=== PATIENT | male | born 1970 | race Caucasian/White ===

== ENCOUNTER 2018-06-06 05:43 | Day surgery (SDC) | payer MEDICAID, OTHER ==
--- NOTE | 2018-05-27 09:24 | HP ---
HISTORY AND PHYSICAL: DATE OF ADMISSION/SURGERY: 06/06/18 DATE OF OFFICE VISIT: 05/27/18 SURGEON: Zofia Russo MD.* (DICTATED BY ROBB MUNOZ) PROCEDURE: Right knee arthroscopy with partial meniscectomy, possible chondroplasty, possible synovectomy, and possible plica excision. CHIEF COMPLAINT: Right knee pain. HISTORY OF PRESENT ILLNESS: Mr. Monae is a 48-year-old gentleman with continued complaints of right knee pain. He failed conservative treatment and elected to proceed with a right knee arthroscopy. PAST MEDICAL HISTORY: GERD. PAST SURGICAL HISTORY: None. CURRENT MEDICATIONS: Prilosec daily. ALLERGIES: No known drug allergies. FAMILY HISTORY: Cancer. SOCIAL HISTORY: He is a 48-year-old gentleman. Lives with his mother. He does not smoke or use drugs. Uses occasional alcohol. REVIEW OF SYSTEMS: A complete 14-point review of systems was reviewed with the patient, positive for GERD. He denies a history of DVT, PE, hepatitis, HIV, or anesthesia problems. PHYSICAL EXAMINATION GENERAL: He is well developed, well nourished, in no acute distress. VITAL SIGNS: He stands 5 feet 6 inches tall, weighs 169 pounds. His blood pressure is 130/82, his heart rate is 80. HEENT: Normocephalic, atraumatic. NECK: Supple. No palpable lymph nodes. PULMONARY: The lungs are clear to auscultation bilaterally. CARDIO: Regular rate and rhythm. Strong S1, S2. ABDOMEN: Soft, nontender. NEUROLOGICAL: He is alert and oriented x3. MUSCULOSKELETAL: Right lower extremity: The skin is intact. There are no open wounds or abrasions. There is a moderate effusion of the right knee. He has some tenderness over the medial joint line, positive Apley's, positive Keyla's. Range of motion is 5 to 130 degrees of flexion. He is distally neurovascularly intact. ASSESSMENT AND PLAN: Mr. Monae is a 48-year-old gentleman with continued complaints of right knee pain. An MRI confirms a medial meniscus tear. He has elected to proceed with right knee arthroscopy with partial meniscectomy, possible chondroplasty, possible synovectomy, and possible plica excision. The surgery is scheduled for 06/06/[address] Russo discussed the risks and benefits of the surgery at today's visit and all of his questions were answered. He will follow up with Dr. Russo 2 weeks after the surgery. ROBB MUNOZ [id number]/[facility] #: [id number] MTDJarod
[~2018-06-06 05:43] MED LIST: Buffered Lidocaine 1% SYRIN* 1 ML/SYRINGE INTRADERM ONE; Ondansetron TAB* 4 MG PO ONE
[2018-06-06] MEDS ORDERED: oxyCODONE/Acetamin 5/325 MG* TAB PO PRN (05:54)
[2018-06-06] MEDS ORDERED: Scopolamine 1.5 mg* PATCH TRANSDERM PRN (05:54)
[2018-06-06] MEDS ORDERED: PROCHLORPERAZINE INJ 5 MG/ML 2 ML VIAL IV PRN (05:54)
[2018-06-06] MEDS ORDERED: Naloxone* 0.4 MG/ML 1 ML VIAL IV PRN (05:54)
[2018-06-06] MEDS ORDERED: fentaNYL* 50 MCG/ML 2 ML VIAL (100 MCG VIAL) IV PRN (05:54)
[2018-06-06] MEDS ORDERED: DiMENhydriNATE IV* 50 MG/ML VIAL IV PUSH PRN (05:54)
[2018-06-06] MEDS ORDERED: Morphine 4 MG/ML VIAL (1 ml) 4 MG/ML VIAL IV PRN (05:54)
[2018-06-06] MEDS ORDERED: Lactated Ringers 1000 ML Bag* 1,000 ML IV SCH (06:00)
[2018-06-06] MEDS ORDERED: Ondansetron ODT TAB* 4 MG ONE (06:00)
[2018-06-06] MEDS ORDERED: Dexamethasone TAB* 4 MG PO ONE (06:00)
[2018-06-06] MEDS ORDERED: Famotidine IV* 10 MG/ML 2 ML (20 mg) IV ONE (06:00)
[2018-06-06] MEDS ORDERED: Dexamethasone TAB* 4 MG ONE (06:01)
[2018-06-06] MEDS ORDERED: ceFAZolin 2 GM in NS PREMIX(*) 2 GM/100 ML BAG IVPB ONE (06:01)
[2018-06-06] MEDS ORDERED: methylPREDNISolone ACETATE 80* 80 MG/ML 1 ML VIAL ONE (07:11)
[2018-06-06] MEDS ORDERED: Ketorolac INJ* 30 MG/ML 1 ML VIAL ONE (07:11)
[2018-06-06] MEDS ORDERED: Propofol* 10 MG/ML 20 ML BTL ONE (07:11)
[2018-06-06] MEDS ORDERED: Bupivacaine 0.5%* 50 ML VIAL ONE (07:11)
[2018-06-06] MEDS ORDERED: Lidocaine 2% PF * 5 ML VIAL ONE (07:11)
[2018-06-06] MEDS ORDERED: EPINEPHRINE 1 MG/ML 1 ML VIAL ONE (07:11)
[2018-06-06] MEDS ORDERED: fentaNYL* 50 MCG/ML 2 ML VIAL (100 MCG VIAL) ONE (07:17)
[2018-06-06] MEDS ORDERED: Midazolam* 1 MG/ML 5 ML VIAL (5 MG) ONE (07:17)
[2018-06-06 10:33] VITALS: BP 132/82
--- NOTE | 2018-06-06 21:00 | OP ---
DATE OF OPERATION: 06/06/18 - [facility] DATE OF : 68 SURGEON: Zofia Russo MD SUPERVISOR CUTTING DEPARTMENT: ROBB Naidu. Mr. Bernard did help throughout the procedure with preparation of the leg, wound retraction, manipulation of the knee, and wound closure. ANESTHESIOLOGIST: Dr. Velez. ANESTHESIA: General. PRE-OP DIAGNOSIS: Right knee medial meniscal tear. POST-OP DIAGNOSES: Right knee medial meniscal tear and lateral meniscal tear. OPERATIVE PROCEDURE: Right knee arthroscopy with partial medial meniscectomy and partial lateral meniscectomy. ESTIMATED BLOOD LOSS: Less than 25 cc. COMPLICATIONS: None. SPECIMENS: None. BRIEF HISTORY/INDICATIONS: Mr. Monae is a 48-year-old gentleman who had a fall on some ice twisting the right knee approximately 2 months ago. He has had mechanical symptoms, catching along the medial joint line since then with swelling and pain. He failed conservative treatment and MRI confirmed a medial meniscal tear. The patient elected to undergo right knee arthroscopy due to continued pain and failure of conservative treatment. Informed consent was obtained from the patient. He understood the risks of surgery included, but were not limited to bleeding, infection, damage to nearby structures, continued pain, need for further surgery, retear of the meniscus, progression of arthritis , stroke, heart attack, blood clot, , and anesthesia complications. He wished to proceed. INTRAOPERATIVE FINDINGS: Intraoperatively, the patient was noted to have a large parrot beak-type tear with anterior displacement involving the majority of the body of the medial meniscus in the white-red zone and red-red zone. He was noted to have a radial type tear of the lateral meniscus along the posterior horn. He was noted to have grade 2 and 3 Outerbridge cartilage changes in both patellofemoral and medial compartment affecting the femoral trochlear groove and medial femoral condyle the most. DESCRIPTION OF PROCEDURE: Mr. Monae was identified in the preanesthesia unit. His right lower extremity was marked as the correct operative side. Informed consent was signed and placed in the chart. The patient was taken to the operating room and placed under anesthesia without complication. Right lower extremity was prepped and draped in the usual sterile fashion. Preop time-out was made to correctly identify the patient, side, and site. Appropriate perioperative antibiotics were given within 1 hour of incision. A standard anterolateral portal incision of 0.5 cm in length was made with a 10 - blade and carried down through the capsule. The trocar was introduced. As soon as the light and water sources were turned on, there was immediate visualization of the suprapatellar pouch. A tour of the knee joint was performed. The suprapatellar pouch had no obvious abnormalities. Patellofemoral compartment had some grade 2 and 3 Outerbridge cartilage changes along the femoral trochlear groove. Minimal amount of exposed subchondral bone, but significant amount of cartilage wear. Medial gutter had no loose body or plica. Medial compartment immediately showed a large displaced meniscal tear into the joint space. Medial femoral condyle had some grade 2 and 3 Outerbridge cartilage changes. ACL and PCL appeared to be intact. The knee was placed in a [id number] position. There was a radial tear along the posterior horn of the lateral meniscus. Lateral compartment showed minimal degenerative changes. Lateral gutter showed no loose body or plica. Under direct visualization, a medial portal incision was made with a 10-blade. A probe was introduced and a second tour of the knee joint was performed. No additional findings were noted. Straight biter and shaver were used to perform partial medial meniscectomy. There was a large parrot beak-type tear involving the majority of the body of the medial meniscus in the white-red and red-red zone. This tear was completely excised. Further probing of the medial meniscus revealed no additional tears. Radiofrequency ablation wand was used to further smooth the edge of the meniscus. The knee was placed in a [id number] position. Straight biter and shaver were used to perform partial lateral meniscectomy. This was done in the white- red zone. Radiofrequency ablation wand was used to further smooth the edge of the meniscus. Further probing of the lateral meniscus showed no additional tears. The knee was copiously irrigated with sterile saline. All instruments were removed. Incisions were closed with 3-0 nylon suture. Intraarticular injection of 80 mg Depo-Medrol and 6 cc of 0.5% ropivacaine was placed in the knee joint. Incisions were dressed with sterile Xeroform, 4x4s, and Webril. The Iggy wrap and cold pack were placed over this. The patient's anesthesia was reversed without difficulty. He was taken to the PACU in stable condition. Intended weightbearing will be weightbearing as tolerated. Intended DVT prophylaxis will be aspirin. [id number]/[facility] #: [id number] F F THOMPSON HOSPITALJarod
[2018-06-09] MEDS ORDERED: Scopolamine PATCH Remove* 1 NOTE MISC PATCH OFF ONE (05:56)
== END 2018-06-06 13:43 | disposition home or self-care (01) ==
LOC: OR 05:43
PROVIDERS: ATTEND Orthopaedic Surgery Adult Reconstructive Orthopaedic Surgery
DX: S83.241A Other tear of medial meniscus, current injury, right knee, initial encounter (principal); S83.281A Other tear of lateral meniscus, current injury, right knee, initial encounter; W00.0XXA Fall on same level due to ice and snow, initial encounter; Y92.89 Other specified places as the place of occurrence of the external cause; Z87.891 Personal history of nicotine dependence; K21.9 Gastro-esophageal reflux disease without esophagitis
CPT/HCPCS: A9270-GY; J0690; J1040; J1885; J2250; J2704; J3010; J8540

== ENCOUNTER 2018-09-08 10:46 | Emergency (ER) | payer OTHER ==
[2018-09-08 11:48] VITALS: BP 0/0
--- NOTE | 2018-09-08 11:48 | ED ---
Skin Complaint - HPI Summary HPI Summary: Patient is a 48-year-old male who presents to the ED with a small erythematous area to the abdomen as well as a larger erythematous slightly raised area to the right axillary area. Patient states he pulled a tick off the abdomen yesterday which was not on for more than an hour or so per patient. However, his chief complaint today is the axillary area which is erythematous, slightly raised, painful and larger than it was yesterday. He first noticed this area yesterday, he has never had an abscess before. Patient denies any fevers, sweats, chills. - History of Current Complaint Chief Complaint: EDRashSkinAbscess Time Seen by Provider: 09/08/18 10:47 Stated Complaint: TICK BITE AND RASH PER PT Hx Obtained From: Patient Onset/Duration: Started Hours Ago Skin Exposure Onset/Duration: Hours Ago Timing: Constant Onset Severity: Moderate Current Severity: Moderate Pain Intensity: 4 Pain Scale Used: 0-10 Numeric Skin Location: Diffuse Character: Swelling, Pain, Redness, Raised, Painful Aggravating Symptom(s): Nothing Alleviating Symptom(s): Nothing Associated Signs & Symptoms: Negative Related History: Possible Reaction to: Insect - Allergy/Home Medications Allergies/Adverse Reactions: Allergies Allergy/AdvReac Type Severity Reaction Status Date / Time No Known Allergies Allergy Verified 09/08/18 10:52 PMH/Surg Hx/FS Hx/Imm Hx Previously Healthy: Yes Endocrine/Hematology History: Denies: Hx Diabetes, Hx Thyroid Disease Cardiovascular History: Denies: Hx Congestive Heart Failure, Hx Deep Vein Thrombosis, Hx Hypertension - denies, Hx Myocardial Infarction, Hx Pacemaker/ICD, Other Cardiovascular Problems/Disorders Respiratory History: Denies: Hx Asthma, Hx Chronic Obstructive Pulmonary Disease (COPD), Hx Lung Cancer, Hx Pneumonia, Hx Pulmonary Embolism, Other Respiratory Problems/ Disorders GI History: Reports: Hx Gastroesophageal Reflux Disease - on meds Denies: Hx Gall Bladder Disease, Hx Gastrointestinal Bleed, Hx Ulcer, Hx Urosepsis, Other GI Disorders History: Denies: Hx Kidney Stones, Hx Renal Disease Sensory History: Reports: Hx Contacts or Glasses - glasses Denies: Hx Hearing Aid Opthamlomology History: Reports: Hx Contacts or Glasses - glasses Neurological History: Denies: Hx Dementia, Hx Migraine, Hx Seizures, Hx Transient Ischemic Attacks (TIA), Other Neuro Impairments/Disorders Psychiatric History: Denies: Hx Anxiety, Hx Depression, Hx Panic Disorder, Hx Schizophrenia, Hx Bipolar Disorder - Surgical History Surgery Procedure, Year, and Place: DENIES Hx Anesthesia Reactions: No - Immunization History Hx Pertussis Vaccination: No Immunizations Up to Date: Yes Infectious Disease History: No Infectious Disease History: Denies: Hx Clostridium Difficile, Hx Hepatitis, Hx Human Immunodeficiency Virus (HIV), Hx of Known/Suspected MRSA, Hx Shingles, Hx Tuberculosis, Hx Known/ Suspected VRE, Hx Known/Suspected VRSA, History Other Infectious Disease, Traveled Outside the [place] in Last 30 Days - Family History Known Family History: Positive: None - Social History Occupation: Employed Full-time Lives: With Family Alcohol Use: Rare Hx Substance Use: No Substance Use Type: Reports: Marijuana Substance Use Comment - Amount & Last Used: rare Hx Tobacco Use: Yes Smoking Status (MU): Former Smoker Amount Used/How Often: 20 yrs pack a day Review of Systems Constitutional: Negative Negative: Fever, Chills, Fatigue, Skin Diaphoresis Negative: Palpitations, Chest Pain Negative: Shortness Of Breath, Cough Genitourinary: Negative Positive: no symptoms reported, see HPI Negative: Arthralgia, Myalgia Positive: Other - erythematous slightly raised area measuring 2cm in diameter with no fluctance just inferior to the R axillary area All Other Systems Reviewed And Are Negative: Yes Physical Exam Triage Information Reviewed: Yes Vital Signs On Initial Exam: Initial Vitals Temp Pulse Resp BP Pulse Ox 99.1 F 80 16 152/90 98 09/08/18 10:47 09/08/18 10:47 09/08/18 10:47 09/08/18 10:47 09/08/18 10:47 Vital Signs Reviewed: Yes Appearance: Positive: Well-Nourished Skin: Positive: Skin Color Reflects Adequate Perfusion, Other - erythematous slightly raised area measuring 2cm in diameter with no fluctance just inferior to the R axillary area Head/Face: Positive: Normal Head/Face Inspection Eyes: Positive: EOMI, Conjunctiva Clear Neck: Positive: Supple, No Lymphadenopathy Respiratory/Lung Sounds: Positive: Clear to Auscultation, Breath Sounds Present Cardiovascular: Positive: Pulses are Symmetrical in both Upper and Lower Extremities Neurological: Positive: Sensory/Motor Intact Psychiatric: Positive: Affect/Mood Appropriate Diagnostics - Vital Signs Vital Signs Temp Pulse Resp BP Pulse Ox 09/08/18 10:47 99.1 F 80 16 152/90 98 - Laboratory Lab Statement: Any lab studies that have been ordered have been reviewed, and results considered in the medical decision making process. Course/Dx - Course Course Of Treatment: During the course of treatment, the patient is evaluated for erythematous slightly raised nonfluctuant area inferior to the right axillary area. This appears to be an ingrown hair causing the area to become swollen. There does not appear to be any fluctuance for an I and D. discussed with patient treatment options. Patient prefers antibiotic treatment only at this time and will return if the area becomes larger and will need I&D at that time. Also as small area to the abdomen was a confirmed tick bite. Less than 24 hours - no EM rash. no prophylactic tx at this time. Strict return precautions for both areas are given. Patient understands to return if the area under the axillary area becomes any worse or if the erythematous area grows larger into an EM rash. - Differential Diagnoses - Skin Complaint Differential Diagnoses: Other - folliculitis, sebaceous cyst, EM rash, lyme, herpetic lesion - Diagnoses Provider Diagnoses: Abscess Discharge - Sign-Out/Discharge Documenting (check all that apply): Patient Departure Patient Received Moderate/Deep Sedation with Procedure: No - Discharge Plan Condition: Stable Disposition: HOME Prescriptions: Sulfamethox/Trimethoprim DS* [Bactrim DS 800/160 TAB*] 1 tab PO BID #10 tab MDD 2 Patient Education Materials: Abscess (ED) Referrals: No Primary Care Phys,NOPCP [Primary Care Provider] - Additional Instructions: Bactrim twice daily x 5 days Warm compresses to the area If the area becomes larger or the area becomes fluctuant- return to the ED immediately - Billing Disposition and Condition Condition: STABLE Disposition: Home
== END 2018-09-08 11:47 | disposition home or self-care (01) ==
LOC: ED 10:46
DX: L02.411 Cutaneous abscess of right axilla (principal); Z87.891 Personal history of nicotine dependence
CPT/HCPCS: 99281

== ENCOUNTER 2018-09-12 09:00 | Emergency (ER) | payer BC, OTHER ==
[2018-09-12 09:22] VITALS: BP 150/96
--- NOTE | 2018-09-12 09:45 | ED ---
Skin Complaint - HPI Summary HPI Summary: Mr. Monae has had a red rash in his right axilla and on his right abdomen for the last week or so. He was seen in the emergency department on the seventh, diagnosed with an abscess and started on Bactrim. He has not gotten any better. - History of Current Complaint Chief Complaint: UCSkin Time Seen by Provider: 09/12/18 09:14 Stated Complaint: TICK BITE SYMP Hx Obtained From: Patient Onset/Duration: Started Days Ago Skin Exposure Onset/Duration: Days Ago Timing: Constant Onset Severity: Mild Current Severity: Mild Pain Intensity: 3 Skin Location: Abdomen, Other: - Right axilla Aggravating Symptom(s): Nothing Alleviating Symptom(s): Nothing Associated Signs & Symptoms: Negative - Allergy/Home Medications Allergies/Adverse Reactions: Allergies Allergy/AdvReac Type Severity Reaction Status Date / Time No Known Allergies Allergy Verified 09/12/18 09:22 PMH/Surg Hx/FS Hx/Imm Hx Previously Healthy: Yes Endocrine/Hematology History: Denies: Hx Diabetes, Hx Thyroid Disease Cardiovascular History: Denies: Hx Congestive Heart Failure, Hx Deep Vein Thrombosis, Hx Hypertension - denies, Hx Myocardial Infarction, Hx Pacemaker/ICD, Other Cardiovascular Problems/Disorders Respiratory History: Denies: Hx Asthma, Hx Chronic Obstructive Pulmonary Disease (COPD), Hx Lung Cancer, Hx Pneumonia, Hx Pulmonary Embolism, Other Respiratory Problems/ Disorders GI History: Reports: Hx Gastroesophageal Reflux Disease - on meds Denies: Hx Gall Bladder Disease, Hx Gastrointestinal Bleed, Hx Ulcer, Hx Urosepsis, Other GI Disorders History: Denies: Hx Kidney Stones, Hx Renal Disease Sensory History: Reports: Hx Contacts or Glasses - glasses Denies: Hx Hearing Aid Opthamlomology History: Reports: Hx Contacts or Glasses - glasses Neurological History: Denies: Hx Dementia, Hx Migraine, Hx Seizures, Hx Transient Ischemic Attacks (TIA), Other Neuro Impairments/Disorders Psychiatric History: Denies: Hx Anxiety, Hx Depression, Hx Panic Disorder, Hx Schizophrenia, Hx Bipolar Disorder - Surgical History Surgery Procedure, Year, and Place: DENIES Hx Anesthesia Reactions: No Infectious Disease History: No Infectious Disease History: Denies: Hx Clostridium Difficile, Hx Hepatitis, Hx Human Immunodeficiency Virus (HIV), Hx of Known/Suspected MRSA, Hx Shingles, Hx Tuberculosis, Hx Known/ Suspected VRE, Hx Known/Suspected VRSA, History Other Infectious Disease, Traveled Outside the [place] in Last 30 Days - Family History Known Family History: Positive: None - Social History Alcohol Use: Rare Hx Substance Use: No Substance Use Type: Reports: Marijuana Substance Use Comment - Amount & Last Used: rare Hx Tobacco Use: Yes Smoking Status (MU): Former Smoker Amount Used/How Often: 20 yrs pack a day Review of Systems Constitutional: Negative Respiratory: Negative Positive: Rash Neurological: Negative All Other Systems Reviewed And Are Negative: Yes Physical Exam - Summary Physical Exam Summary: He was nontoxic in appearance with stable vital signs. Triage Information Reviewed: Yes Vital Signs On Initial Exam: Initial Vitals Temp Pulse Resp BP Pulse Ox 98.6 F 90 21 150/96 97 09/12/18 09:17 09/12/18 09:17 09/12/18 09:17 09/12/18 09:09/12/18 09:17 Vital Signs Reviewed: Yes Skin: Positive: Target Lesions - He has target lesions in both areas. Diagnostics - Vital Signs Vital Signs Temp Pulse Resp BP Pulse Ox 09/12/18 09:17 98.6 F 90 21 150/96 97 - Laboratory Lab Statement: Any lab studies that have been ordered have been reviewed, and results considered in the medical decision making process. Course/Dx - Course Course Of Treatment: This looks like erythema migrans to me and I will switch him to doxycycline. - Diagnoses Provider Diagnoses: Lyme disease Discharge - Sign-Out/Discharge Documenting (check all that apply): Patient Departure All imaging exams completed and their final reports reviewed: No Studies - Discharge Plan Condition: Stable Disposition: HOME Patient Education Materials: Lyme Disease (ED) Referrals: No Primary Care Phys,NOPCP [Primary Care Provider] - Additional Instructions: Your blood pressure was running slightly high here today and I recommended he follow up with your PCP. - Billing Disposition and Condition Condition: STABLE Disposition: Home
== END 2018-09-12 09:50 | disposition home or self-care (01) ==
LOC: UCEAST 09:00
DX: A69.20 Lyme disease, unspecified (principal); K21.9 Gastro-esophageal reflux disease without esophagitis; Z87.891 Personal history of nicotine dependence
CPT/HCPCS: 99212; G0463

== ENCOUNTER 2019-01-14 11:05 | Emergency (ER) | payer BC, OTHER ==
[2019-01-14 12:03] VITALS: BP 157/89
--- NOTE | 2019-01-14 12:12 | UC ---
Hand/Wrist HPI - HPI Summary HPI Summary: 48 yo male presents with RIGHT wrist injury. He tells me that yesterday he was carrying in groceries and his niece jumped on his back - pt fell forward with his hands outstretched. His right right wrist bent backwards. Since that time has had pain and swelling. He is right handed. Has been taking ibuprofen with little relief. Denies numbness or tingling. - History Of Current Complaint Chief Complaint: UCUpperExtremity Stated Complaint: WRIST INJURY Time Seen by Provider: 01/14/19 12:11 Hx Obtained From: Patient Onset/Duration: Sudden Onset Severity Initially: Moderate Severity Currently: Moderate Pain Intensity: 8 Pain Scale Used: 0-10 Numeric - Allergies/Home Medications Allergies/Adverse Reactions: Allergies Allergy/AdvReac Type Severity Reaction Status Date / Time No Known Allergies Allergy Verified 01/14/19 11:56 PMH/Surg Hx/FS Hx/Imm Hx GI/ History: Gastroesophageal Reflux Other History Of: Negative For: HIV, Hepatitis B, Hepatitis C - Surgical History Surgical History: Yes Surgery Procedure, Year, and Place: R knee 2018 - Family History Known Family History: Positive: None - Social History Occupation: Employed Full-time Lives: With Family Alcohol Use: Rare Substance Use Type: Marijuana Substance Use Comment - Amount & Last Used: rare Smoking Status (MU): Former Smoker Amount Used/How Often: 20 yrs pack a day When Did the Patient Quit Smoking/Using Tobacco: 2010 - Immunization History Most Recent Tetanus Shot: june 2015 Review of Systems All Other Systems Reviewed And Are Negative: No Constitutional: Positive: Negative Skin: Positive: Negative Respiratory: Positive: Negative Cardiovascular: Positive: Negative Neurovascular: Positive: Negative Musculoskeletal: Positive: Other: - Right wrist pain Neurological: Positive: Negative Psychological: Positive: Negative Physical Exam - Summary Physical Exam Summary: GENERAL: NAD. WDWN. No pain distress. SKIN: No rashes, sores, lesions, or open wounds. CHEST: No accessory muscle use. Breathing comfortably and in no distress. CV: Pulses intact radial and ulnar. Cap refill <2seconds MSK: RIGHT WRIST: Mild dorsal TTP without specific point tenderness. FROM, but pain worse with extension. Strength 5/5 including assembler radio and electrical strength. No snuffbox tenderness. NEURO: Alert. Sensations intact hand and all fingers. PSYCH: Age appropriate behavior. Triage Information Reviewed: Yes Vital Signs: Initial Vital Signs Temp 98.8 F 01/14/19 11:57 Pulse 88 01/14/19 11:57 Resp 16 01/14/19 11:57 BP 157/89 01/14/19 11:57 Pulse Ox 97 01/14/19 11:57 Vital Signs Reviewed: Yes Diagnostics - Radiology Wrist XR Radiology Interpretation Completed By: Radiologist Summary of Radiographic Findings: IMPRESSION: NO FRACTURE OF THE WRIST IS NOTED. Hand/Wrist Course/Dx - Course Course Of Treatment: XR as above. Suspect wrist sprain. Advised to RICE and take tylenol/ibuprofen for discomfort. Pt was provided with a cock up splint to use for comfort - Differential Dx/Diagnosis Provider Diagnosis: Wrist sprain Discharge ED - Sign-Out/Discharge Documenting (check all that apply): Patient Departure All imaging exams completed and their final reports reviewed: Yes - Discharge Plan Condition: Stable Disposition: HOME Patient Education Materials: Wrist Sprain (ED) Forms: *Work Release Referrals: No Primary Care Phys,NOPCP [Primary Care Provider] - Luke Coker MD [Medical Doctor] - If Needed Additional Instructions: If you develop a fever, shortness of breath, chest pain, new or worsening symptoms - please call your PCP or go to the ED immediately. Your blood pressure was high at todays visit. Please see your primary provider within 4 weeks for recheck and re-evaluation. The X-ray today was normal. Rest, Ice, and elevate your wrist to decrease pain and swelling Use the wrist splint as needed for comfort If your symptoms do not improve within 5-7 days, please call Orthopedics at the number below to schedule an appointment for a recheck - Billing Disposition and Condition Condition: STABLE Disposition: Home
== END 2019-01-14 12:50 | disposition home or self-care (01) ==
LOC: UCEAST 11:05
DX: S63.501A Unspecified sprain of right wrist, initial encounter (principal); Z87.891 Personal history of nicotine dependence; W19.XXXA Unspecified fall, initial encounter; Y92.9 Unspecified place or not applicable
CPT/HCPCS: 99212; G0463

== ENCOUNTER 2019-03-14 07:27 | Emergency (ER) | payer BC ==
[2019-03-14 07:43] VITALS: BP 154/92
--- NOTE | 2019-03-14 08:15 | UC ---
Respiratory Complaint HPI - HPI Summary HPI Summary: The patient is a 48-year-old male with a 3 week history of nasal congestion postnasal drip and cough. He has had no fever. He has low energy. He denies any chest pain or shortness of breath. He has a long history of high blood pressure but is currently not being treated for. - History of Current Complaint Chief Complaint: UCGeneralIllness Stated Complaint: SINUS ISSUE Time Seen by Provider: 03/14/19 08:10 Hx Obtained From: Patient Onset/Duration: Gradual Onset, Lasting Weeks Timing: Constant Severity Initially: Mild Severity Currently: Moderate Pain Intensity: 4 Pain Scale Used: 0-10 Numeric Character: Cough: Productive Aggravating Factors: Nothing Alleviating Factors: Nothing Associated Signs And Symptoms: Positive: URI, Nasal Congestion, Sinus Discomfort - Allergies/Home Medications Allergies/Adverse Reactions: Allergies Allergy/AdvReac Type Severity Reaction Status Date / Time No Known Allergies Allergy Verified 03/14/19 07:43 PMH/Surg Hx/FS Hx/Imm Hx Previously Healthy: Yes Cardiovascular History: Hypertension Respiratory History: Pneumonia Other History Of: Negative For: HIV, Hepatitis B, Hepatitis C - Surgical History Surgical History: Yes Surgery Procedure, Year, and Place: R knee 2018 - Family History Known Family History: Positive: None - Social History Alcohol Use: Rare Substance Use Type: Marijuana Substance Use Comment - Amount & Last Used: rare Smoking Status (MU): Former Smoker Amount Used/How Often: 20 yrs pack a day When Did the Patient Quit Smoking/Using Tobacco: 2010 - Immunization History Most Recent Tetanus Shot: june 2015 Review of Systems All Other Systems Reviewed And Are Negative: Yes Constitutional: Positive: Fatigue Skin: Positive: Negative Eyes: Positive: Negative ENT: Positive: Nasal Discharge, Sinus Congestion, Sinus Pain/Tenderness Respiratory: Positive: Cough Cardiovascular: Positive: Negative Gastrointestinal: Positive: Negative Genitourinary: Positive: Negative Motor: Positive: Negative Neurovascular: Positive: Negative Musculoskeletal: Positive: Negative Neurological: Positive: Negative Psychological: Positive: Negative Physical Exam Triage Information Reviewed: Yes Appearance: Well-Appearing, No Pain Distress, Well-Nourished Vital Signs: Initial Vital Signs Temp 98.7 F 03/14/19 07:38 Pulse 81 03/14/19 07:38 Resp 20 03/14/19 07:38 BP 154/92 03/14/19 07:38 Pulse Ox 97 03/14/19 07:38 Vital Signs Reviewed: Yes Eyes: Positive: Conjunctiva Clear ENT: Positive: Hearing grossly normal, Nasal congestion, Nasal drainage, TMs normal, Hoarse voice, Sinus tenderness, Uvula midline. Negative: Tonsillar swelling, Tonsillar exudate, Muffled voice Dental Exam: Other - abysmal dention/most teeth missing Neck: Positive: Supple, Nontender, No Lymphadenopathy Respiratory: Positive: Lungs clear, Normal breath sounds, No respiratory distress, No accessory muscle use Cardiovascular: Positive: RRR, No Murmur Musculoskeletal: Positive: ROM Intact, No Edema Neurological: Positive: Alert Psychological Exam: Normal Skin Exam: Normal Respiratory Course/Dx - Differential Dx/Diagnosis Provider Diagnosis: Sinusitis Discharge ED - Sign-Out/Discharge Documenting (check all that apply): Patient Departure All imaging exams completed and their final reports reviewed: No Studies - Discharge Plan Condition: Stable Disposition: HOME Prescriptions: DOXYcycline CAP(*) [DOXYcycline 100MG CAP(*)] 100 mg PO BID #14 cap Patient Education Materials: Sinusitis (ED) Referrals: [facility] [place] [facility] [Outside] - As Soon As Possible Additional Instructions: recheck for new or worsening symptoms Recheck in one week if not better You need to find a primary care provider to treat your HIGH BLOOD PRESSURE - Billing Disposition and Condition Condition: STABLE Disposition: Home
== END 2019-03-14 08:23 | disposition home or self-care (01) ==
LOC: UCEAST 07:27
DX: J32.9 Chronic sinusitis, unspecified (principal); I10 Essential (primary) hypertension; Z87.891 Personal history of nicotine dependence
CPT/HCPCS: 99212; G0463